=== PATIENT | female | born 1945 | race Caucasian/White ===

== ENCOUNTER → 2017-01-07 | Outpatient (CLI) | payer MEDICARE ==
[~2017-01-07] MED LIST: BROVANA15 MCG/2 M INH; CELEXA40 MG PO; COMBIVENT0.074 GM/I INH; ENSURE LIQUID237 ML PO; IMODIUM CAP 2 MG2 MG PO; IPRAT-ALBUT 0.5-3 ML INH; LASIX20 MG PO; LASIX40 MG PO; LEVAQUIN750 MG PO; LOPRESSOR 25 MG25 MG PO; MEDROL DOSEPAK 24 MG PO; NEURONTIN 300300 MG PO; OMNICEF 300 MG300 MG PO; PERCOCET 5-3251 EACH PO; POTASSIUM CHLO20 ME2 PO; PREDNISONE 10 M10 MG PO; PRILOSEC OTC20 MG PO; PROAIR HFA8.5 GM INH; PROTONIX40 MG PO; PULMICORT0.25 MG/1 INH; STIOLTO RESPIMAT INH; TOPROL XL 25 MG25 MG PO; VENTOLIN/PROVE0.5 ML INH; VITAMIN B-1000 MCG/M IM; VITAMIN D 11000 UNIT PO
== END ==
LOC: EXRD 13:00
DX: Z13.820 Encounter for screening for osteoporosis (principal); M85.89 Other specified disorders of bone density and structure, multiple sites
CPT/HCPCS: 77080

== ENCOUNTER 2017-05-31 07:17 | Inpatient (IN) | payer MEDICARE ==
[~2017-05-31] VITALS: Ht 152.4 cm; Wt 68.5 kg
[~2017-05-31 07:17] MED LIST changes: -LASIX40 MG PO; -LEVAQUIN750 MG PO; -MEDROL DOSEPAK 24 MG PO; -POTASSIUM CHLO20 ME2 PO; -PREDNISONE 10 M10 MG PO; -PROTONIX40 MG PO; -STIOLTO RESPIMAT INH; -VITAMIN D 11000 UNIT PO
[2017-05-31 07:51] LABS: HEMOGLOBIN 11.4 gm/dl (12.3-15.3); RED BLOOD COUNT 3.88 M/UL (4.00-5.10); WHITE BLOOD COUNT 17.6 K/UL (4.5-11.0)
[2017-05-31] MEDS ORDERED: PROTONIX40 MG PO (11:07)
[2017-05-31] MEDS ORDERED: LASIX40 MG PO (11:07)
[2017-05-31] MEDS ORDERED: POTASSIUM CHLO20 ME2 PO (11:08)
[2017-05-31] MEDS ORDERED: PREDNISONE 10 M10 MG PO (11:08)
[2017-05-31] MEDS ORDERED: VITAMIN D 11000 UNIT PO (11:08)
[2017-05-31] MEDS ORDERED: STIOLTO RESPIMAT INH (11:14)
[2017-06-01 05:36] LABS: HEMOGLOBIN 9.9 gm/dl (12.3-15.3); RED BLOOD COUNT 3.37 M/UL (4.00-5.10); WHITE BLOOD COUNT 15.8 K/UL (4.5-11.0)
[2017-06-02 04:48] LABS: HEMOGLOBIN 9.8 gm/dl (12.3-15.3); RED BLOOD COUNT 3.38 M/UL (4.00-5.10); WHITE BLOOD COUNT 12.8 K/UL (4.5-11.0)
[2017-06-02] MEDS ORDERED: LEVAQUIN750 MG PO (20:13)
[2017-06-02] MEDS ORDERED: LOPRESSOR 25 MG25 MG PO (20:14)
[2017-06-02] MEDS ORDERED: MEDROL DOSEPAK 24 MG PO (20:15)
== END 2017-06-02 20:53 | disposition home or self-care (01) | DRG 189 ==
LOC: ER1 07:17 → ZEROF 08:45 → PROG CARE 08:45 → MED SURG 4 06-01 20:03
PROVIDERS: Emergency Medicine; Internal Medicine; ADMIT Internal Medicine
PROC: 3E0234Z Introduction of Serum, Toxoid and Vaccine into Muscle, Percutaneous Approach (ICD-10-PCS; principal; 2017-06-02)
DX: J96.22 Acute and chronic respiratory failure with hypercapnia (principal); J18.9 Pneumonia, unspecified organism; J44.0 Chronic obstructive pulmonary disease with (acute) lower respiratory infection; J44.1 Chronic obstructive pulmonary disease with (acute) exacerbation; M48.56XA Collapsed vertebra, not elsewhere classified, lumbar region, initial encounter for fracture; E87.2 Acidosis; Z99.81 Dependence on supplemental oxygen; J96.21 Acute and chronic respiratory failure with hypoxia; R74.8 Abnormal levels of other serum enzymes; R00.0 Tachycardia, unspecified; D72.829 Elevated white blood cell count, unspecified; K21.9 Gastro-esophageal reflux disease without esophagitis; M81.0 Age-related osteoporosis without current pathological fracture; D64.9 Anemia, unspecified; Z88.6 Allergy status to analgesic agent; Z88.5 Allergy status to narcotic agent; Z88.2 Allergy status to sulfonamides; Z87.891 Personal history of nicotine dependence; Z87.01 Personal history of pneumonia (recurrent); Z90.710 Acquired absence of both cervix and uterus; Z82.5 Family history of asthma and other chronic lower respiratory diseases; M45.9 Ankylosing spondylitis of unspecified sites in spine; D24.1 Benign neoplasm of right breast; I12.9 Hypertensive chronic kidney disease with stage 1 through stage 4 chronic kidney disease, or unspecified chronic kidney disease; N18.2 Chronic kidney disease, stage 2 (mild); Z23 Encounter for immunization
CPT/HCPCS: ECHO; 36415; 36600; 71010; 72131; 78452; 80048; 80053; 81001; 82550; 82553; 82607; 82728; 82746; 82803; 83036; 83540; 83550; 83605; 83735; 83874; 83880; 84439; 84443; 84484; 85025; 85027; 85379; 85730; 86140; 87040; 87278; 87899; 93005; 93017; 93306; 94640; 94660; 94664; A9502; G0008; J0456; J0696; J1120; J1644; J1650; J2785; J2920; J7030; J7050; J7509; Q2039; Q9963